=== PATIENT | male | born 1945 | race Caucasian/White ===

== ENCOUNTER 2022-05-30 05:54 | Day surgery (SDC) | payer MEDICARE ==
[2022-05-28 10:16] VITALS: BMI 30.7
[2022-05-30] MEDS ORDERED: LACTATED RINGERS 1,000 ML IV ONE (06:47)
[2022-05-30 06:48] VITALS: RESP 16; TEMP 98.3
[2022-05-30] MEDS ORDERED: MIDAZOLAM 2 MG/2 ML VIAL IV ONE (06:52)
[2022-05-30] MEDS ORDERED: PROPOFOL 10 MG/ML 20 ML VIAL IV ONE (06:59)
[2022-05-30] MEDS ORDERED: LIDOCAINE 2% INJ 20 MG/ML (2 ML VIAL) ONE (06:59)
--- NOTE | 2022-05-30 07:30 | P.PCN ---
Date of Procedure: 05/30/22 Procedure(s) Performed: Brief history: Patient is a pleasant 76-year-old white male scheduled for an elective upper endoscopy as well as colonoscopy as a part of evaluation of epigastric pain and heartburn for the last several years duration. Lately her symptoms have been progressively getting worse. Scheduled for colonoscopy as a part of screening for colorectal neoplasia. Procedure performed: Esophagogastroduodenoscopy Colonoscopy Preoperative diagnosis: GERD Screening for colon cancer Anesthesia: MAC Procedure: After informed consent was obtained from the patient was brought into the endoscopy unit and IV sedation was administered by anesthesia under continuous monitoring. Initially upper endoscopy was done. The Olympus GF 160 video endoscope was inserted inserted into the mouth and esophagus intubated without any difficulty and was gradually advanced into the stomach and duodenum and carefully examined. The bulb of the duodenum had a 5 mm duodenal ulcer with no active bleeding. Mild duodenitis also seen. The second part of the duodenum appeared normal. The scope was then withdrawn into the stomach adequately insufflated with air and upon careful examination the anthad scattered erosions and biopsies were done from this area. The body, cardia and fundus appeared normal. The scope was then withdrawn into the esophagus. The GE junction was located at 40 cm to the incisors. It appeared regular with no erythema erosions or ulcerations. Rest of the esophagus appeared normal. Patient tolerated the procedure well. At this time the patient continued to remain sedation. Initial digital rectal examination was normal. Olympus CF 160 video colonoscope was then inserted into the rectum and gradually advanced to the cecum without any difficulty. Careful examination was performed as the scope was gradually being withdrawn. The prep was excellent. The cecum, ascending colon, transverse colon, descending colon, sigmoid colon and rectum appeared normal. scattered diffuse diverticulosis seen. Retroflexion was performed in the rectum and no lesions were noted. Patient tolerated the procedure well. Impression: 1. Upper endoscopy revealed small duodenal ulcer and antral erosive gastritis 2. Colonoscopy revealed scattered diffuse diverticulosis but no evidence of colorectal neoplasia Recommendations: Findings of this examination were discussed with the patient as well as his family. He was advised to follow with the biopsy results. In the meantime he will be started on Prilosec 20 mg daily for 3 months. Avoid NSAIDs.
[2022-05-30] MEDS ORDERED: IV FLUID CONTINUATION 1,000 ML IV ONE (07:31)
[2022-05-30 07:48] VITALS: BP 159/93; PULSE 90
== END 2022-05-30 08:19 | disposition home or self-care (01) ==
LOC: ORWHC2ENDO 05:54
PROVIDERS: ATTEND Internal Medicine Gastroenterology
DX: Z12.11 Encounter for screening for malignant neoplasm of colon (principal); K57.30 Diverticulosis of large intestine without perforation or abscess without bleeding; K21.00 Gastro-esophageal reflux disease with esophagitis, without bleeding; K29.50 Unspecified chronic gastritis without bleeding; I25.10 Atherosclerotic heart disease of native coronary artery without angina pectoris
CPT/HCPCS: 88305; 43239; J2250; J2704; J2001; G0121